=== PATIENT | female | born 1945 | race Caucasian/White ===

== ENCOUNTER 2017-06-24 06:41 | Emergency (ER) | payer MEDICARE, OTHER ==
[2017-06-24 08:14] LABS: ADD MAN DIFF? NO
[2017-06-24 08:16] LABS: WHITE BLOOD COUNT 6.8 10^3/ul (4.8-10.8)
[2017-06-24 08:16] LABS: BASOPHIL # 0.1 10^3/ul (0.0-0.1); BASOPHILS % 1.2 % (0.0-2.0); EOSINOPHILS # 0.3 10^3/ul (0.0-0.5); HEMATOCRIT 40.9 % (37.0-47.0); HEMOGLOBIN 13.3 g/dl (12.0-16.0); LYMPHOCYTES # 1.5 10^3/ul (0.8-2.9); MEAN CORPUSCULAR HEMOGLOBIN 33.7 pg (29.0-33.0); MEAN CORPUSCULAR HGB CONC 32.5 g/dl (32.0-37.0); MEAN CORPUSCULAR VOLUME 103.5 fl (82.0-101.0); MEAN PLATELET VOLUME 11.4 fl (7.4-10.4); MONOCYTE # 0.6 10^3/ul (0.3-0.9); MONOCYTES % 9.3 % (0.0-11.0); NEUTROPHIL # 4.3 10^3/ul (1.6-7.5); NEUTROPHILS % 63.4 % (39.0-77.0); PLATELET COUNT 242 10^3/UL (140-415); RED BLOOD COUNT 3.95 10^6/ul (4.20-5.40); RED CELL DISTRIBUTION WIDTH 12.5 % (11.5-14.5)
[2017-06-24 08:21] LABS: ANION GAP 16 (8-16); BLOOD UREA NITROGEN 13 mg/dl (7-20); CALCIUM 9.2 mg/dl (8.4-10.2); CARBON DIOXIDE 25 mmol/L (21-31); CHLORIDE 107 mmol/L (97-110); CREATININE 0.85 mg/dl (0.44-1.00); GLUCOSE 115 mg/dl (70-220); POTASSIUM 3.8 mmol/L (3.5-5.1); SODIUM 144 mmol/L (135-144)
[2017-06-24] MEDS: SOD CHLORIDE 0.9% 100 ML (10:05)
[2017-06-24] MEDS: IOHEXOL 100 ML (10:05)
== END 2017-06-24 10:39 | disposition home or self-care (01) ==
LOC: E/R 06:41
DX: K59.00 Constipation, unspecified (principal); I71.4 Abdominal aortic aneurysm, without rupture; I10 Essential (primary) hypertension; Z87.891 Personal history of nicotine dependence
CPT/HCPCS: 36415; 75635; 80048; 85025; 99285-25

== ENCOUNTER 2017-10-19 03:03 | Inpatient (IN) | payer MEDICARE, OTHER ==
[2017-10-19 03:33] LABS: ADD MAN DIFF? NO
[2017-10-19 03:35] LABS: WHITE BLOOD COUNT 4.9 10^3/ul (4.8-10.8)
[2017-10-19 03:35] LABS: BASOPHIL # 0.1 10^3/ul (0.0-0.1); BASOPHILS % 1.4 % (0.0-2.0); EOSINOPHILS # 0.3 10^3/ul (0.0-0.5); EOSINOPHILS % 6.6 % (0.0-7.0); HEMATOCRIT 43.9 % (37.0-47.0); HEMOGLOBIN 14.7 g/dl (12.0-16.0); LYMPHOCYTES # 1.8 10^3/ul (0.8-2.9); LYMPHOCYTES % 37.4 % (15.0-51.0); MEAN CORPUSCULAR HEMOGLOBIN 33.9 pg (29.0-33.0); MEAN CORPUSCULAR HGB CONC 33.5 g/dl (32.0-37.0); MEAN CORPUSCULAR VOLUME 101.2 fl (82.0-101.0); MEAN PLATELET VOLUME 11.4 fl (7.4-10.4); MONOCYTE # 0.5 10^3/ul (0.3-0.9); MONOCYTES % 9.9 % (0.0-11.0); NEUTROPHIL # 2.2 10^3/ul (1.6-7.5); NEUTROPHILS % 44.5 % (39.0-77.0); PLATELET COUNT 247 10^3/UL (140-415); RED BLOOD COUNT 4.34 10^6/ul (4.20-5.40); RED CELL DISTRIBUTION WIDTH 11.9 % (11.5-14.5)
[2017-10-19] MEDS: ALBUTEROL 0.083% (NEB) 2.5 MG/3 ML AMP INH (03:39)
[2017-10-19 03:54] LABS: ALANINE AMINOTRANSFERASE 37 IU/L (13-69); ALBUMIN 4.6 g/dl (3.3-4.9); ALBUMIN/GLOBULIN RATIO 1.35; ALKALINE PHOSPHATASE 76 IU/L (42-121); ANION GAP 21 (8-16); ASPARTATE AMINO TRANSFERASE 44 IU/L (15-46); BILIRUBIN,INDIRECT 0.2 mg/dl (0-1.1); BILIRUBIN,TOTAL 0.2 mg/dl (0.2-1.3); BLOOD UREA NITROGEN 10 mg/dl (7-20); CALCIUM 9.8 mg/dl (8.4-10.2); CARBON DIOXIDE 22 mmol/L (21-31); CHLORIDE 107 mmol/L (97-110); CREATININE 0.87 mg/dl (0.44-1.00); GLUCOSE 117 mg/dl (70-220); INR 0.84; POTASSIUM 3.8 mmol/L (3.5-5.1); PROTIME 11.6 Sec (11.9-14.9); PT RATIO 0.9; SODIUM 146 mmol/L (135-144)
[2017-10-19 03:55] LABS: PARTIAL THROMBOPLASTIN TIME 30.8 Sec (25.0-35.0)
[2017-10-19 04:04] LABS: LACTIC ACID 2.3 mmol/L (0.5-2.0)
[2017-10-19 04:05] LABS: B-TYPE NATRIURETIC PEPTIDE 25 PG/ML (0-125); TROPONIN-I < 0.012 ng/ml (0.000-0.120)
[2017-10-19] MEDS: SODIUM CHLORIDE 0.9% 1L BAG IV* (04:14)
[2017-10-19] MEDS: CEFEPIME 2GM/50 ML (PMX) 50 ML IVPB (04:15)
[2017-10-19] MEDS: ONDANSETRON 4 MG INJ IV (04:18)
[2017-10-19] MEDS: traMADol 50 MG TAB PO ×4 (04:31→17:57)
[2017-10-19] MEDS: VANCOMYCIN 1 GM (PMX) 250 ML IVPB (04:53)
[2017-10-19] MEDS ORDERED: DOCUSATE SODIUM 100 MG CAP PO (07:00)
[2017-10-19] MEDS ORDERED: BISACODYL (EC) 5 MG TAB PO (07:00)
[2017-10-19] MEDS ORDERED: ONDANSETRON 4 MG INJ IV (07:00)
[2017-10-19] MEDS ORDERED: ACETAMINOPHEN 325 MG TAB PO (07:00)
[2017-10-19] MEDS ORDERED: NACL 0.9% 3 ML SYG IV (07:00)
[2017-10-19] MEDS: HYDROCODONE/APAP (5/325) TAB PO (07:20)
[2017-10-19] MEDS ORDERED: VANCOMYCIN IV PER PHARMACY XX (07:30)
[2017-10-19] MEDS: PIPER-TAZO 3.375 GM IV (PMX) 100 ML IVPB ×2 (11:33→17:57)
[2017-10-19 12:42] LABS: ADD UMIC NO; UR ASCORBIC ACID NEGATIVE (NEGATIVE); UR BILIRUBIN (Dip) NEGATIVE (NEGATIVE); UR BLOOD (Dip) NEGATIVE (NEGATIVE); UR CLARITY CLEAR (CLEAR); UR COLOR YELLOW (YELLOW); UR GLUCOSE (Dip) NEGATIVE (NEGATIVE); UR KETONES (Dip) NEGATIVE (NEGATIVE); UR LEUKOCYTE ESTERASE (Dip) NEGATIVE Leu/ul (NEGATIVE); UR NITRITE (Dip) NEGATIVE (NEGATIVE); UR SPECIFIC GRAVITY (Dip) 1.016 (1.003-1.030); UR TOTAL PROTEIN (Dip) NEGATIVE (NEGATIVE); UR UROBILINOGEN (Dip) NEGATIVE (NEGATIVE)
[2017-10-19 15:15] LABS: FOLATE > 20.0 ng/ml (2.8-20.0)
[2017-10-19] MEDS ORDERED: traMADol 50 MG TAB PO (15:30)
[2017-10-19] MEDS: VANCOMYCIN 500MG/NS (PMX) 100 ML IVPB (16:28)
[2017-10-19] MEDS: clonAZEPAM 0.5 MG TAB PO (16:30)
[2017-10-19 17:23] LABS: AMPHETAMINE/METHAMPHETAMINE Negative (NEGATIVE); BARBITURATES Negative (NEGATIVE); BENZODIAZEPINES Negative (NEGATIVE); CANNABINOIDS Negative (NEGATIVE); COCAINE Negative (NEGATIVE); OPIATES Positive (NEGATIVE)
[2017-10-19] MEDS: ALBUTEROL/IPRATROPIUM (NEB) 3 ML AMP HHN (21:03)
[2017-10-20] MEDS: PIPER-TAZO 3.375 GM IV (PMX) 100 ML IVPB ×3 (00:18→11:59)
[2017-10-20] MEDS: traMADol 50 MG TAB PO ×4 (00:19→15:13)
[2017-10-20] MEDS: clonAZEPAM 0.5 MG TAB PO ×2 (00:25→09:54)
[2017-10-20] MEDS: VANCOMYCIN 500MG/NS (PMX) 100 ML IVPB (05:48)
[2017-10-20] MEDS: PANTOPRAZOLE (EC) 40 MG TAB PO (05:51)
[2017-10-20 05:58] LABS: ADD MAN DIFF? NO
[2017-10-20 06:16] LABS: WHITE BLOOD COUNT 6.2 10^3/ul (4.8-10.8)
[2017-10-20 06:16] LABS: BASOPHIL # 0.1 10^3/ul (0.0-0.1); BASOPHILS % 1.1 % (0.0-2.0); EOSINOPHILS # 0.5 10^3/ul (0.0-0.5); EOSINOPHILS % 8.4 % (0.0-7.0); HEMATOCRIT 36.7 % (37.0-47.0); HEMOGLOBIN 11.9 g/dl (12.0-16.0); LYMPHOCYTES # 2.1 10^3/ul (0.8-2.9); LYMPHOCYTES % 33.5 % (15.0-51.0); MEAN CORPUSCULAR HEMOGLOBIN 33.7 pg (29.0-33.0); MEAN CORPUSCULAR HGB CONC 32.4 g/dl (32.0-37.0); MEAN PLATELET VOLUME 11.5 fl (7.4-10.4); MONOCYTE # 0.6 10^3/ul (0.3-0.9); NEUTROPHIL # 2.9 10^3/ul (1.6-7.5); NEUTROPHILS % 46.8 % (39.0-77.0); PLATELET COUNT 181 10^3/UL (140-415); RED BLOOD COUNT 3.53 10^6/ul (4.20-5.40); RED CELL DISTRIBUTION WIDTH 12.2 % (11.5-14.5)
[2017-10-20 06:21] LABS: HEMOGLOBIN A1C 5.9 % (0-5.9)
[2017-10-20 07:00] LABS: ALANINE AMINOTRANSFERASE 41 IU/L (13-69); ALBUMIN 3.5 g/dl (3.3-4.9); ALBUMIN/GLOBULIN RATIO 1.25; ALKALINE PHOSPHATASE 47 IU/L (42-121); ANION GAP 12 (8-16); ASPARTATE AMINO TRANSFERASE 40 IU/L (15-46); BILIRUBIN,INDIRECT 0.3 mg/dl (0-1.1); BILIRUBIN,TOTAL 0.3 mg/dl (0.2-1.3); BLOOD UREA NITROGEN 22 mg/dl (7-20); CALCIUM 8.9 mg/dl (8.4-10.2); CARBON DIOXIDE 27 mmol/L (21-31); CHLORIDE 106 mmol/L (97-110); CHOL/HDL RATIO 2.1 RATIO; CHOLESTEROL 136 mg/dl (100-200); CREATININE 0.98 mg/dl (0.44-1.00); GLUCOSE 93 mg/dl (70-220); HDL CHOLESTEROL 64 mg/dl (33-92); LDL CHOLESTEROL,CALCULATED 61 mg/dl; MAGNESIUM 1.9 mg/dl (1.7-2.5); POTASSIUM 4.4 mmol/L (3.5-5.1); SODIUM 141 mmol/L (135-144); TOTAL PROTEIN 6.3 g/dl (6.1-8.1); TRIGLYCERIDES 55 mg/dl (0-149)
[2017-10-20] MEDS: DOCUSATE SODIUM 100 MG CAP PO (09:54)
[2017-10-20] MEDS: VENLAFAXINE (XR) 75 MG CAP PO (09:54)
[2017-10-20] MEDS: POLYETHYLENE GLYCOL 17 GM PACKET PO (09:55)
[2017-10-20] MEDS: AMLODIPINE 10 MG TAB PO (09:55)
[2017-10-20] MEDS: ATORVASTATIN 20 MG TAB PO (09:55)
[2017-10-20] MEDS ORDERED: CEPASTAT LOZENGE MT (12:00)
[2017-10-20] MEDS: CEPASTAT LOZENGE MT (13:28)
[2017-10-20] MEDS: ALBUTEROL/IPRATROPIUM (NEB) 3 ML AMP HHN (16:14)
[2017-10-20 17:17] LABS: VANCOMYCIN,TROUGH 7.6 ug/ml (10.0-20.0)
[2017-10-20] MEDS ORDERED: MONTELUKAST 10 MG TAB PO (21:00)
== END 2017-10-20 16:50 | disposition left against medical advice (07) | DRG 872 ==
LOC: E/R 03:03 → 2NE 07:04
DX: A41.9 Sepsis, unspecified organism (principal); R65.20 Severe sepsis without septic shock; J44.9 Chronic obstructive pulmonary disease, unspecified; J06.9 Acute upper respiratory infection, unspecified; E86.0 Dehydration; I10 Essential (primary) hypertension; E78.5 Hyperlipidemia, unspecified; F41.8 Other specified anxiety disorders; G89.29 Other chronic pain; Z76.5 Malingerer [conscious simulation]; K59.00 Constipation, unspecified; K27.9 Peptic ulcer, site unspecified, unspecified as acute or chronic, without hemorrhage or perforation
CPT/HCPCS: 36415; 71045; 76775; 80053; 80061; 80202; 80307; 81003; 82607; 82746; 83036; 83605; 83735; 83880; 84443; 84484; 85025; 85610; 85730; 87040; 87086; 87880; 93005; 94640; 94664; 96374; 96375; 99291-25

== ENCOUNTER 2018-05-04 12:11 | Emergency (ER) | payer MEDICARE, OTHER ==
[2018-05-04] MEDS: morphine 2 MG INJ IM (14:21)
== END 2018-05-04 15:08 | disposition home or self-care (01) ==
LOC: E/R 12:11
DX: S42.302A Unspecified fracture of shaft of humerus, left arm, initial encounter for closed fracture (principal); J44.9 Chronic obstructive pulmonary disease, unspecified; I10 Essential (primary) hypertension; W01.0XXA Fall on same level from slipping, tripping and stumbling without subsequent striking against object, initial encounter; Y92.9 Unspecified place or not applicable; Z79.82 Long term (current) use of aspirin
CPT/HCPCS: 73030; 96372; 99284-25

== ENCOUNTER 2018-05-06 02:44 | Emergency (ER) | payer MEDICARE, OTHER ==
[2018-05-06] MEDS: morphine 4 MG/ML VIAL IV (03:24)
[2018-05-06] MEDS: ONDANSETRON 4 MG INJ IV (03:24)
[2018-05-06] MEDS: HYDROCODONE/APAP (10/325) TAB PO (05:39)
== END 2018-05-06 07:38 | disposition home or self-care (01) ==
LOC: E/R 02:44
DX: S42.292D Other displaced fracture of upper end of left humerus, subsequent encounter for fracture with routine healing (principal); I10 Essential (primary) hypertension; J44.9 Chronic obstructive pulmonary disease, unspecified; W18.39XD Other fall on same level, subsequent encounter; Y92.9 Unspecified place or not applicable; Z79.82 Long term (current) use of aspirin; Z87.891 Personal history of nicotine dependence
CPT/HCPCS: 73130; 73130-LT; 73562; 73590; 96374; 96375; 99284-25

== ENCOUNTER 2018-05-12 04:03 | Inpatient (IN) | payer MEDICARE, OTHER ==
[2018-05-12] MEDS ORDERED: ACETAMINOPHEN 325 MG TAB PO ×2 (06:00→07:00)
[2018-05-12] MEDS ORDERED: ONDANSETRON 4 MG INJ IV (06:00)
[2018-05-12 06:08] LABS: ADD MAN DIFF? NO
[2018-05-12 06:15] LABS: WHITE BLOOD COUNT 6.6 10^3/ul (4.8-10.8)
[2018-05-12 06:15] LABS: BASOPHIL # 0.1 10^3/ul (0.0-0.1); BASOPHILS % 1.1 % (0.0-2.0); EOSINOPHILS # 0.2 10^3/ul (0.0-0.5); HEMATOCRIT 38.6 % (37.0-47.0); HEMOGLOBIN 12.3 g/dl (12.0-16.0); LYMPHOCYTES # 1.1 10^3/ul (0.8-2.9); LYMPHOCYTES % 17.2 % (15.0-51.0); MEAN CORPUSCULAR HEMOGLOBIN 33.1 pg (29.0-33.0); MEAN CORPUSCULAR HGB CONC 31.9 g/dl (32.0-37.0); MEAN CORPUSCULAR VOLUME 103.8 fl (82.0-101.0); MEAN PLATELET VOLUME 10.9 fl (7.4-10.4); MONOCYTE # 0.5 10^3/ul (0.3-0.9); MONOCYTES % 7.7 % (0.0-11.0); NEUTROPHIL # 4.7 10^3/ul (1.6-7.5); NEUTROPHILS % 70.7 % (39.0-77.0); PLATELET COUNT 351 10^3/UL (140-415); RED BLOOD COUNT 3.72 10^6/ul (4.20-5.40); RED CELL DISTRIBUTION WIDTH 11.9 % (11.5-14.5)
[2018-05-12 06:32] LABS: INR 0.84; PROTIME 11.6 Sec (11.9-14.9); PT RATIO 0.9
[2018-05-12 06:42] LABS: ANION GAP 16 (5-13); BLOOD UREA NITROGEN 12 mg/dl (7-20); CALCIUM 10.3 mg/dl (8.4-10.2); CARBON DIOXIDE 24 mmol/L (21-31); CHLORIDE 104 mmol/L (97-110); GLUCOSE 118 mg/dl (70-220); SODIUM 144 mmol/L (135-144)
[2018-05-12] MEDS ORDERED: NACL 0.9% 3 ML SYG IV (07:00)
[2018-05-12] MEDS: ONDANSETRON 4 MG INJ IV ×2 (07:10→14:31)
[2018-05-12] MEDS: morphine 2 MG INJ IV ×4 (07:10→23:01)
[2018-05-12] MEDS: VENLAFAXINE (XR) 75 MG CAP PO (08:18)
[2018-05-12] MEDS: ATORVASTATIN 20 MG TAB PO (08:39)
[2018-05-12] MEDS: KETOROLAC 30 MG INJ IV ×2 (08:41→15:14)
[2018-05-12] MEDS: clonAZEPAM 0.5 MG TAB PO ×2 (10:21→22:00)
[2018-05-12] MEDS ORDERED: traMADol 50 MG TAB PO (12:00)
[2018-05-12] MEDS: traMADol 50 MG TAB PO ×2 (12:08→18:08)
[2018-05-12] MEDS: ALBUTEROL/IPRATROPIUM (NEB) 3 ML AMP HHN ×2 (17:03→23:40)
[2018-05-12] MEDS: RANITIDINE 150 MG TAB PO (22:03)
[2018-05-13] MEDS: traMADol 50 MG TAB PO ×4 (00:10→18:37)
[2018-05-13] MEDS: morphine 2 MG INJ IV ×4 (02:07→16:49)
[2018-05-13 05:30] LABS: ADD MAN DIFF? NO
[2018-05-13 05:35] LABS: WHITE BLOOD COUNT 5.9 10^3/ul (4.8-10.8)
[2018-05-13 05:35] LABS: BASOPHIL # 0.1 10^3/ul (0.0-0.1); EOSINOPHILS # 0.3 10^3/ul (0.0-0.5); EOSINOPHILS % 5.2 % (0.0-7.0); HEMATOCRIT 33.2 % (37.0-47.0); HEMOGLOBIN 10.7 g/dl (12.0-16.0); LYMPHOCYTES # 1.7 10^3/ul (0.8-2.9); LYMPHOCYTES % 28.4 % (15.0-51.0); MEAN CORPUSCULAR HEMOGLOBIN 33.1 pg (29.0-33.0); MEAN CORPUSCULAR HGB CONC 32.2 g/dl (32.0-37.0); MEAN CORPUSCULAR VOLUME 102.8 fl (82.0-101.0); MEAN PLATELET VOLUME 10.8 fl (7.4-10.4); MONOCYTE # 0.7 10^3/ul (0.3-0.9); NEUTROPHIL # 3.2 10^3/ul (1.6-7.5); NEUTROPHILS % 54.2 % (39.0-77.0); PLATELET COUNT 303 10^3/UL (140-415); RED BLOOD COUNT 3.23 10^6/ul (4.20-5.40); RED CELL DISTRIBUTION WIDTH 11.9 % (11.5-14.5)
[2018-05-13 06:12] LABS: ALANINE AMINOTRANSFERASE 23 IU/L (13-69); ALBUMIN/GLOBULIN RATIO 1.29; ALKALINE PHOSPHATASE 81 IU/L (42-121); ANION GAP 14 (5-13); ASPARTATE AMINO TRANSFERASE 40 IU/L (15-46); BILIRUBIN,INDIRECT 0.2 mg/dl (0-1.1); BILIRUBIN,TOTAL 0.2 mg/dl (0.2-1.3); BLOOD UREA NITROGEN 24 mg/dl (7-20); CALCIUM 9.5 mg/dl (8.4-10.2); CARBON DIOXIDE 27 mmol/L (21-31); CHLORIDE 102 mmol/L (97-110); CREATININE 0.84 mg/dl (0.44-1.00); GLUCOSE 102 mg/dl (70-220); PHOSPHORUS 4.4 mg/dl (2.5-4.9); POTASSIUM 4.2 mmol/L (3.5-5.1); SODIUM 143 mmol/L (135-144); TOTAL PROTEIN 7.1 g/dl (6.1-8.1)
[2018-05-13] MEDS: HEPARIN 5,000 UNIT/1 ML VIAL SC (09:00)
[2018-05-13] MEDS: VENLAFAXINE (XR) 75 MG CAP PO (09:36)
[2018-05-13] MEDS: ATORVASTATIN 20 MG TAB PO (09:36)
[2018-05-13 11:40] LABS: OCCULT BLOOD STOOL NEGATIVE (NEGATIVE)
[2018-05-13] MEDS: clonAZEPAM 0.5 MG TAB PO (12:06)
[2018-05-13] MEDS: ONDANSETRON 4 MG INJ IV (16:49)
== END 2018-05-13 21:00 | disposition home or self-care (01) | DRG 92 ==
LOC: E/R 04:03 → MS1 06:00
DX: G89.29 Other chronic pain (principal); S42.292A Other displaced fracture of upper end of left humerus, initial encounter for closed fracture; I10 Essential (primary) hypertension; E78.5 Hyperlipidemia, unspecified; J44.9 Chronic obstructive pulmonary disease, unspecified; M21.832 Other specified acquired deformities of left forearm; G40.909 Epilepsy, unspecified, not intractable, without status epilepticus; F41.9 Anxiety disorder, unspecified; F32.9 Major depressive disorder, single episode, unspecified; R29.6 Repeated falls; Z87.11 Personal history of peptic ulcer disease; Z87.891 Personal history of nicotine dependence; W19.XXXD Unspecified fall, subsequent encounter
CPT/HCPCS: 71045; 73030; 80048; 80053; 82270; 83735; 84100; 85025; 85610; 86850; 86900; 86901; 87081; 93005; 94640; 94664; 99285-25

== ENCOUNTER 2018-07-01 12:40 | Emergency (ER) | payer MEDICARE, OTHER ==
[2018-07-01] MEDS: LIDOCAINE/MYLANTA 40 ML BTL PO (13:23)
[2018-07-01] MEDS: clonAZEPAM 0.5 MG TAB PO (13:24)
[2018-07-01] MEDS: traMADol 50 MG TAB PO (13:24)
[2018-07-01] MEDS: ONDANSETRON (ODT) 4 MG TAB ODT (15:35)
== END 2018-07-01 17:09 | disposition home or self-care (01) ==
LOC: E/R 12:40
DX: R10.13 Epigastric pain (principal); J44.9 Chronic obstructive pulmonary disease, unspecified
CPT/HCPCS: 99283

== ENCOUNTER 2018-07-01 22:31 | Inpatient (IN) | payer MEDICARE, OTHER ==
[2018-07-01 23:51] LABS: ADD MAN DIFF? NO
[2018-07-01 23:59] LABS: WHITE BLOOD COUNT 10.1 10^3/ul (4.8-10.8)
[2018-07-01 23:59] LABS: BASOPHIL # 0.1 10^3/ul (0.0-0.1); BASOPHILS % 0.7 % (0.0-2.0); EOSINOPHILS # 0.1 10^3/ul (0.0-0.5); HEMATOCRIT 41.4 % (37.0-47.0); HEMOGLOBIN 13.9 g/dl (12.0-16.0); LYMPHOCYTES # 1.7 10^3/ul (0.8-2.9); LYMPHOCYTES % 16.8 % (15.0-51.0); MEAN CORPUSCULAR HEMOGLOBIN 33.6 pg (29.0-33.0); MEAN CORPUSCULAR HGB CONC 33.6 g/dl (32.0-37.0); MONOCYTE # 0.7 10^3/ul (0.3-0.9); MONOCYTES % 7.3 % (0.0-11.0); NEUTROPHIL # 7.5 10^3/ul (1.6-7.5); NEUTROPHILS % 73.7 % (39.0-77.0); PLATELET COUNT 320 10^3/UL (140-415); RED BLOOD COUNT 4.14 10^6/ul (4.20-5.40); RED CELL DISTRIBUTION WIDTH 11.9 % (11.5-14.5)
[2018-07-02 00:08] LABS: URINE BLOOD (Dip) POC Negative (NEGATIVE); URINE GLUCOSE (Dip) POC Negative (NEGATIVE); URINE KETONES (Dip) POC Negative (NEGATIVE); URINE LEUKOCYTE EST (Dip) POC Trace (NEGATIVE); URINE NITRITE (Dip) POC Positive (NEGATIVE); URINE TOTAL PROTEIN POC Trace (NEGATIVE)
[2018-07-02 00:08] LABS: URINE PH (Dip) POC 6.5 (5.0-8.5)
[2018-07-02] MEDS: ONDANSETRON 4 MG INJ IV ×2 (00:44→03:01)
[2018-07-02 01:28] LABS: ALANINE AMINOTRANSFERASE 25 IU/L (13-69); ALBUMIN/GLOBULIN RATIO 1.66; ALKALINE PHOSPHATASE 104 IU/L (42-121); ANION GAP 12 (5-13); ASPARTATE AMINO TRANSFERASE 32 IU/L (15-46); BILIRUBIN,INDIRECT 0.4 mg/dl (0-1.1); BILIRUBIN,TOTAL 0.4 mg/dl (0.2-1.3); BLOOD UREA NITROGEN 13 mg/dl (7-20); CALCIUM 10.4 mg/dl (8.4-10.2); CARBON DIOXIDE 27 mmol/L (21-31); CHLORIDE 97 mmol/L (97-110); CREATININE 0.92 mg/dl (0.44-1.00); GLUCOSE 122 mg/dl (70-220); LIPASE 98 U/L (23-300); POTASSIUM 3.3 mmol/L (3.5-5.1); SODIUM 136 mmol/L (135-144)
[2018-07-02] MEDS: SOD CHLORIDE 0.9% 100 ML (02:51)
[2018-07-02] MEDS: IOHEXOL 100 ML (02:52)
[2018-07-02] MEDS: morphine 2 MG INJ IV (03:01)
[2018-07-02] MEDS: CEFTRIAXONE 1 GM/50 ML (PMX) 50 ML IVPB (03:14)
[2018-07-02] MEDS: traMADol 50 MG TAB PO ×3 (06:58→13:59)
[2018-07-02] MEDS: clonAZEPAM 0.5 MG TAB PO ×2 (06:58→20:05)
[2018-07-02] MEDS ORDERED: NACL 0.9% 3 ML SYG IV (07:00)
[2018-07-02] MEDS ORDERED: ALBUTEROL 18 GM INHALER INH (07:00)
[2018-07-02] MEDS ORDERED: DOCUSATE SODIUM 100 MG CAP PO (07:00)
[2018-07-02] MEDS ORDERED: BISACODYL (EC) 5 MG TAB PO (07:00)
[2018-07-02] MEDS ORDERED: ACETAMINOPHEN 325 MG TAB PO (07:00)
[2018-07-02] MEDS ORDERED: NON-FORMULARY/PATIENT OWN MED (Omeprazole* 40 MG) PO (09:00)
[2018-07-02] MEDS: LOSARTAN 25 MG TAB PO (09:05)
[2018-07-02] MEDS: POLYETHYLENE GLYCOL 17 GM PACKET PO (09:55)
[2018-07-02] MEDS: PANTOPRAZOLE (EC) 40 MG TAB PO (09:55)
[2018-07-02] MEDS ORDERED: ALBUTEROL HFA 8 GM INHALER INH (09:56)
[2018-07-02] MEDS: ATORVASTATIN 20 MG TAB PO (09:56)
[2018-07-02] MEDS: DOCUSATE SODIUM 100 MG CAP PO (09:56)
[2018-07-02] MEDS: hydrALAzine 20 MG INJ IV (10:20)
[2018-07-02] MEDS: ARFORMOTEROL TARTRATE 15MCG/2 ML AMP NEB ×2 (11:30→13:50)
[2018-07-02] MEDS: METHYLPREDNISOLONE 125 MG INJ IV (12:04)
[2018-07-02] MEDS: VENLAFAXINE (XR) 75 MG CAP PO ×2 (12:04→13:57)
[2018-07-02] MEDS: ALBUTEROL/IPRATROPIUM (NEB) 3 ML AMP HHN (13:51)
[2018-07-02] MEDS: METHYLPREDNISOLONE 40 MG INJ IV (20:05)
[2018-07-02] MEDS: RANITIDINE 150 MG TAB PO (20:05)
[2018-07-02] MEDS: POTASSIUM CHLORIDE (SR) 20 MEQ TAB PO (20:06)
[2018-07-02 22:42] LABS: AMPHETAMINE/METHAMPHETAMINE Negative (NEGATIVE); BARBITURATES Negative (NEGATIVE); CANNABINOIDS Negative (NEGATIVE); OPIATES Positive (NEGATIVE)
[2018-07-02 22:43] LABS: BENZODIAZEPINES Positive (NEGATIVE)
[2018-07-02 22:45] LABS: COCAINE Negative (NEGATIVE)
[2018-07-03] MEDS ORDERED: ENALAPRILAT 1.25 MG INJ IV (02:30)
[2018-07-03] MEDS: CEFTRIAXONE 1 GM/50 ML (PMX) 50 ML IVPB (03:42)
[2018-07-03] MEDS: PANTOPRAZOLE (EC) 40 MG TAB PO (05:31)
[2018-07-03] MEDS: traMADol 50 MG TAB PO ×3 (05:32→18:44)
[2018-07-03] MEDS: ONDANSETRON 4 MG INJ IV ×2 (05:32→14:54)
[2018-07-03 06:24] LABS: ADD MAN DIFF? NO
[2018-07-03 06:27] LABS: WHITE BLOOD COUNT 10.8 10^3/ul (4.8-10.8)
[2018-07-03 06:27] LABS: BASOPHILS % 0.2 % (0.0-2.0); HEMATOCRIT 37.3 % (37.0-47.0); HEMOGLOBIN 12.4 g/dl (12.0-16.0); LYMPHOCYTES # 1.2 10^3/ul (0.8-2.9); LYMPHOCYTES % 10.7 % (15.0-51.0); MEAN CORPUSCULAR HEMOGLOBIN 33.8 pg (29.0-33.0); MEAN CORPUSCULAR HGB CONC 33.2 g/dl (32.0-37.0); MEAN CORPUSCULAR VOLUME 101.6 fl (82.0-101.0); MEAN PLATELET VOLUME 11.2 fl (7.4-10.4); MONOCYTE # 0.6 10^3/ul (0.3-0.9); MONOCYTES % 5.7 % (0.0-11.0); NEUTROPHILS % 83.1 % (39.0-77.0); PLATELET COUNT 271 10^3/UL (140-415); RED BLOOD COUNT 3.67 10^6/ul (4.20-5.40); RED CELL DISTRIBUTION WIDTH 12.5 % (11.5-14.5)
[2018-07-03 06:56] LABS: MAGNESIUM 2.2 mg/dl (1.7-2.5)
[2018-07-03 06:56] LABS: PHOSPHORUS 5.1 mg/dl (2.5-4.9)
[2018-07-03 06:58] LABS: ALANINE AMINOTRANSFERASE 21 IU/L (13-69); ALBUMIN 4.4 g/dl (3.3-4.9); ALBUMIN/GLOBULIN RATIO 1.69; ALKALINE PHOSPHATASE 77 IU/L (42-121); ANION GAP 9 (5-13); ASPARTATE AMINO TRANSFERASE 51 IU/L (15-46); BILIRUBIN,INDIRECT 0.4 mg/dl (0-1.1); BILIRUBIN,TOTAL 0.4 mg/dl (0.2-1.3); BLOOD UREA NITROGEN 25 mg/dl (7-20); CALCIUM 9.6 mg/dl (8.4-10.2); CARBON DIOXIDE 27 mmol/L (21-31); CHLORIDE 103 mmol/L (97-110); CHOL/HDL RATIO 2.1 RATIO; CHOLESTEROL 181 mg/dl (100-200); CREATININE 0.84 mg/dl (0.44-1.00); GLUCOSE 119 mg/dl (70-220); HDL CHOLESTEROL 86 mg/dl (33-92); LDL CHOLESTEROL,CALCULATED 81 mg/dl; POTASSIUM 4.2 mmol/L (3.5-5.1); SODIUM 139 mmol/L (135-144); TRIGLYCERIDES 69 mg/dl (0-149)
[2018-07-03 07:17] LABS: THYROID STIMULATING HORMONE 0.286 MIU/L (0.465-4.680)
[2018-07-03 07:40] LABS: HEMOGLOBIN A1C 5.4 % (0-5.9)
[2018-07-03] MEDS: clonAZEPAM 0.5 MG TAB PO ×2 (07:54→20:37)
[2018-07-03] MEDS: VENLAFAXINE (XR) 75 MG CAP PO (08:44)
[2018-07-03] MEDS: POLYETHYLENE GLYCOL 17 GM PACKET PO (08:44)
[2018-07-03] MEDS: LOSARTAN 25 MG TAB PO (08:45)
[2018-07-03] MEDS: ATORVASTATIN 20 MG TAB PO (08:45)
[2018-07-03] MEDS: METHYLPREDNISOLONE 40 MG INJ IV ×2 (08:45→20:36)
[2018-07-03] MEDS: DOCUSATE SODIUM 100 MG CAP PO (08:45)
[2018-07-03] MEDS: ENOXAPARIN 40 MG/0.4 ML SYG SC (09:00)
[2018-07-03] MEDS: ARFORMOTEROL TARTRATE 15MCG/2 ML AMP NEB ×3 (11:57→23:30)
[2018-07-03] MEDS: RANITIDINE 150 MG TAB PO (20:37)
[2018-07-04] MEDS: ONDANSETRON 4 MG INJ IV ×3 (02:52→23:21)
[2018-07-04] MEDS: CEFTRIAXONE 1 GM/50 ML (PMX) 50 ML IVPB (02:52)
[2018-07-04] MEDS: PANTOPRAZOLE (EC) 40 MG TAB PO (05:35)
[2018-07-04] MEDS: traMADol 50 MG TAB PO ×3 (05:45→18:16)
[2018-07-04] MEDS: ALBUTEROL/IPRATROPIUM (NEB) 3 ML AMP HHN (06:16)
[2018-07-04 06:22] LABS: ADD MAN DIFF? NO
[2018-07-04 06:25] LABS: WHITE BLOOD COUNT 11.7 10^3/ul (4.8-10.8)
[2018-07-04 06:25] LABS: BASOPHILS % 0.2 % (0.0-2.0); HEMATOCRIT 39.6 % (37.0-47.0); HEMOGLOBIN 12.9 g/dl (12.0-16.0); LYMPHOCYTES # 1.3 10^3/ul (0.8-2.9); LYMPHOCYTES % 11.2 % (15.0-51.0); MEAN CORPUSCULAR HEMOGLOBIN 33.5 pg (29.0-33.0); MEAN CORPUSCULAR HGB CONC 32.6 g/dl (32.0-37.0); MEAN CORPUSCULAR VOLUME 102.9 fl (82.0-101.0); MEAN PLATELET VOLUME 11.3 fl (7.4-10.4); MONOCYTE # 0.6 10^3/ul (0.3-0.9); MONOCYTES % 4.9 % (0.0-11.0); NEUTROPHIL # 9.8 10^3/ul (1.6-7.5); NEUTROPHILS % 83.4 % (39.0-77.0); PLATELET COUNT 286 10^3/UL (140-415); RED BLOOD COUNT 3.85 10^6/ul (4.20-5.40); RED CELL DISTRIBUTION WIDTH 12.8 % (11.5-14.5)
[2018-07-04 06:58] LABS: MAGNESIUM 2.4 mg/dl (1.7-2.5)
[2018-07-04 07:00] LABS: ANION GAP 11 (5-13); BLOOD UREA NITROGEN 25 mg/dl (7-20); CALCIUM 9.6 mg/dl (8.4-10.2); CARBON DIOXIDE 30 mmol/L (21-31); CHLORIDE 101 mmol/L (97-110); CREATININE 0.84 mg/dl (0.44-1.00); GLUCOSE 128 mg/dl (70-220); POTASSIUM 4.9 mmol/L (3.5-5.1); SODIUM 142 mmol/L (135-144)
[2018-07-04] MEDS: ARFORMOTEROL TARTRATE 15MCG/2 ML AMP NEB ×2 (08:04→20:26)
[2018-07-04] MEDS: METHYLPREDNISOLONE 40 MG INJ IV ×2 (08:36→20:07)
[2018-07-04] MEDS: ATORVASTATIN 20 MG TAB PO (08:37)
[2018-07-04] MEDS: DOCUSATE SODIUM 100 MG CAP PO (08:37)
[2018-07-04] MEDS: clonAZEPAM 0.5 MG TAB PO ×2 (08:38→20:06)
[2018-07-04] MEDS: POLYETHYLENE GLYCOL 17 GM PACKET PO (08:38)
[2018-07-04] MEDS: ENOXAPARIN 40 MG/0.4 ML SYG SC (08:39)
[2018-07-04] MEDS: LOSARTAN 25 MG TAB PO (08:43)
[2018-07-04] MEDS: VENLAFAXINE (XR) 75 MG CAP PO (10:14)
[2018-07-04] MEDS ORDERED: ALBUTEROL/IPRATROPIUM (NEB) 3 ML AMP HHN (16:30)
[2018-07-04] MEDS: RANITIDINE 150 MG TAB PO (20:07)
[2018-07-05] MEDS: traMADol 50 MG TAB PO ×3 (00:56→12:05)
[2018-07-05] MEDS: PANTOPRAZOLE (EC) 40 MG TAB PO (05:27)
[2018-07-05] MEDS: ONDANSETRON 4 MG INJ IV (05:32)
[2018-07-05 08:07] LABS: FREE T4 (FREE THYROXINE) 0.82 ng/dl (0.78-2.44)
[2018-07-05] MEDS: clonAZEPAM 0.5 MG TAB PO (08:10)
[2018-07-05 08:21] LABS: TRIIODOTHYRONINE 0.66 ng/ml (0.97-1.69)
[2018-07-05] MEDS: METHYLPREDNISOLONE 40 MG INJ IV (08:45)
[2018-07-05] MEDS: POLYETHYLENE GLYCOL 17 GM PACKET PO (08:45)
[2018-07-05] MEDS: ENOXAPARIN 40 MG/0.4 ML SYG SC (08:46)
[2018-07-05] MEDS: ATORVASTATIN 20 MG TAB PO (08:46)
[2018-07-05] MEDS: ARFORMOTEROL TARTRATE 15MCG/2 ML AMP NEB (08:46)
[2018-07-05] MEDS: DOCUSATE SODIUM 100 MG CAP PO (08:47)
[2018-07-05] MEDS: LOSARTAN 25 MG TAB PO (08:47)
[2018-07-05] MEDS: VENLAFAXINE (XR) 75 MG CAP PO (08:48)
== END 2018-07-05 17:03 | disposition home or self-care (01) | DRG 897 ==
LOC: E/R 22:31 → 5EC 07-03 17:27 → TEL 07-02 05:04
DX: F13.239 Sedative, hypnotic or anxiolytic dependence with withdrawal, unspecified (principal); N39.0 Urinary tract infection, site not specified; J43.9 Emphysema, unspecified; F41.9 Anxiety disorder, unspecified; F32.9 Major depressive disorder, single episode, unspecified; E78.5 Hyperlipidemia, unspecified; I71.4 Abdominal aortic aneurysm, without rupture; I10 Essential (primary) hypertension; E87.6 Hypokalemia; K27.9 Peptic ulcer, site unspecified, unspecified as acute or chronic, without hemorrhage or perforation; Z99.81 Dependence on supplemental oxygen; G89.29 Other chronic pain; F41.0 Panic disorder [episodic paroxysmal anxiety]; Z87.891 Personal history of nicotine dependence; E05.90 Thyrotoxicosis, unspecified without thyrotoxic crisis or storm; F41.1 Generalized anxiety disorder; K57.30 Diverticulosis of large intestine without perforation or abscess without bleeding; E86.0 Dehydration; Z65.8 Other specified problems related to psychosocial circumstances; Z91.14 Patient's other noncompliance with medication regimen
CPT/HCPCS: 36415; 75635; 80048; 80053; 80061; 80307; 81003; 83036; 83690; 83735; 84100; 84439; 84443; 84480; 85025; 87081; 94640; 94664; 96374; 96375; 96376; 99285-25

== ENCOUNTER 2018-07-19 05:35 | Emergency (ER) | payer MEDICARE, OTHER ==
[2018-07-19] MEDS: clonAZEPAM 0.5 MG TAB PO (06:09)
== END 2018-07-19 08:18 | disposition home or self-care (01) ==
LOC: E/R 05:35
DX: F41.9 Anxiety disorder, unspecified (principal); J44.9 Chronic obstructive pulmonary disease, unspecified; Z79.82 Long term (current) use of aspirin
CPT/HCPCS: 99283

== ENCOUNTER 2018-10-13 06:16 | Emergency (ER) | payer MEDICARE, OTHER ==
[2018-10-13] MEDS: ONDANSETRON (ODT) 4 MG TAB ODT (06:31)
[2018-10-13 06:39] LABS: URINE BLOOD (Dip) POC 2+ (NEGATIVE); URINE GLUCOSE (Dip) POC Negative (NEGATIVE); URINE KETONES (Dip) POC Negative (NEGATIVE); URINE LEUKOCYTE EST (Dip) POC 1+ (NEGATIVE); URINE NITRITE (Dip) POC Negative (NEGATIVE); URINE TOTAL PROTEIN POC Negative (NEGATIVE)
== END 2018-10-13 08:03 | disposition home or self-care (01) ==
LOC: E/R 06:16
DX: F11.20 Opioid dependence, uncomplicated (principal); J44.9 Chronic obstructive pulmonary disease, unspecified; R40.2142 Coma scale, eyes open, spontaneous, at arrival to emergency department; R40.2362 Coma scale, best motor response, obeys commands, at arrival to emergency department; R40.2252 Coma scale, best verbal response, oriented, at arrival to emergency department; Z79.82 Long term (current) use of aspirin; Z87.891 Personal history of nicotine dependence
CPT/HCPCS: 81003; 99283

== ENCOUNTER 2018-10-13 11:46 | Emergency (ER) | payer MEDICARE, OTHER | END 2018-10-13 12:28 | disposition home or self-care (01) | LOC: E/R 11:46 | DX: I10 Essential (primary) hypertension (principal); J44.9 Chronic obstructive pulmonary disease, unspecified | CPT/HCPCS: 99283 ==

== ENCOUNTER 2018-10-29 22:33 | Inpatient (IN) | payer MEDICARE, OTHER ==
[2018-10-29] MEDS: ONDANSETRON 4 MG INJ IV (23:08)
[2018-10-29] MEDS: HYDROmorphONE 1 MG/ML SYG IV (23:08)
[2018-10-29] MEDS: SOD CHLORIDE 0.9% 1,000 ML IV (23:08)
[2018-10-29] MEDS: NA PHOSPHATE/BIPHOS 133 ML ENEMA PR (23:09)
[2018-10-29 23:21] LABS: ABNORMAL IP MESSAGE 1; HEMATOCRIT 41.4 % (37.0-47.0); HEMOGLOBIN 13.4 g/dl (12.0-16.0); MEAN CORPUSCULAR HEMOGLOBIN 34.1 pg (29.0-33.0); MEAN CORPUSCULAR HGB CONC 32.4 g/dl (32.0-37.0); MEAN CORPUSCULAR VOLUME 105.3 fl (82.0-101.0); MEAN PLATELET VOLUME 11.3 fl (7.4-10.4); PLATELET COUNT 343 10^3/UL (140-415); RED BLOOD COUNT 3.93 10^6/ul (4.20-5.40); RED CELL DISTRIBUTION WIDTH 12.3 % (11.5-14.5)
[2018-10-29 23:21] LABS: WHITE BLOOD COUNT 26.1 10^3/ul (4.8-10.8)
[2018-10-29 23:22] LABS: POSITIVE DIFF @See below
[2018-10-29 23:25] LABS: ADD MAN DIFF? YES
[2018-10-29 23:28] LABS: PATH REVIEW? YES
[2018-10-29 23:47] LABS: ALANINE AMINOTRANSFERASE 21 IU/L (13-69); ALBUMIN/GLOBULIN RATIO 1.51; ALKALINE PHOSPHATASE 102 IU/L (42-121); ANION GAP 16 (5-13); ASPARTATE AMINO TRANSFERASE 28 IU/L (15-46); BILIRUBIN,INDIRECT 0.1 mg/dl (0-1.1); BILIRUBIN,TOTAL 0.1 mg/dl (0.2-1.3); BLOOD UREA NITROGEN 22 mg/dl (7-20); CALCIUM 10.6 mg/dl (8.4-10.2); CARBON DIOXIDE 23 mmol/L (21-31); CHLORIDE 102 mmol/L (97-110); CREATININE 0.95 mg/dl (0.44-1.00); GLUCOSE 195 mg/dl (70-220); LIPASE 159 U/L (23-300); POTASSIUM 3.5 mmol/L (3.5-5.1); SODIUM 141 mmol/L (135-144); TOTAL PROTEIN 8.3 g/dl (6.1-8.1)
[2018-10-30 00:11] LABS: ANISOCYTOSIS 1+ (0-0); BAND NEUTROPHILS #M 3.3 10^3/ul (0.0-0.6); BAND NEUTROPHILS % (M) 13 % (0-4); EOSINOPHILS % (M) 1 % (0-7); LYMPHOCYTES #M 2.8 10^3/ul (0.8-2.9); LYMPHOCYTES % (M) 11 % (15-51); MONOCYTE #M 1.5 10^3/ul (0.3-0.9); MONOCYTES % (M) 6 % (0-11); PLATELET ESTIMATE NORMAL; POIKILOCYTOSIS 2+ (0-0); REACTIVE LYMPHOCYTES #M 0.2 10^3/ul (0.0-0.0); REACTIVE LYMPHOCYTES% (M) 1 % (0-0); SEG NEUT #M 18.6 10^3/ul (1.6-7.5); SEGMENTED NEUTROPHILS (M) % 68 % (39-77); SMUDGE%M 9 % (0-0)
[2018-10-30] MEDS: IOHEXOL 300MG/ML 150 ML BTL (00:33)
[2018-10-30] MEDS: SOD CHLORIDE 0.9% 100 ML (00:33)
[2018-10-30] MEDS: ERTAPENEM SODIUM 1 GM in SOD CHLORIDE 0.9% 100 ML IVPB (02:35)
[2018-10-30] MEDS: ONDANSETRON 4 MG INJ IV ×5 (02:35→20:16)
[2018-10-30] MEDS ORDERED: SOD CHLORIDE 0.9% 1,000 ML IV (03:06)
[2018-10-30] MEDS ORDERED: ACETAMINOPHEN 325 MG TAB PO (03:30)
[2018-10-30] MEDS: clonAZEPAM 0.5 MG TAB PO ×3 (04:08→20:16)
[2018-10-30] MEDS: AMLODIPINE 10 MG TAB PO (04:09)
[2018-10-30] MEDS: HYDROmorphONE 1 MG/ML SYG IV (05:26)
[2018-10-30] MEDS: LIDOCAINE/MYLANTA 40 ML BTL PO (05:26)
[2018-10-30] MEDS ORDERED: NACL 0.9% 3 ML SYG IV (07:00)
[2018-10-30] MEDS ORDERED: ALBUTEROL/IPRATROPIUM (NEB) 3 ML AMP HHN (07:00)
[2018-10-30] MEDS ORDERED: NON-FORMULARY/PATIENT OWN MED (Omeprazole* 40 MG) PO (09:00)
[2018-10-30] MEDS: PIPER-TAZO 3.375 GM IV (PMX) 100 ML IVPB ×3 (09:18→17:46)
[2018-10-30] MEDS: VENLAFAXINE (XR) 75 MG CAP PO (09:19)
[2018-10-30] MEDS: DEXTROSE 5%-0.45% NACL 1,000 ML IV ×2 (09:19→20:34)
[2018-10-30] MEDS: PANTOPRAZOLE (EC) 40 MG TAB PO (09:19)
[2018-10-30] MEDS: morphine 2 MG INJ IV ×4 (10:16→22:58)
[2018-10-30 12:28] LABS: ADD UMIC YES; UR ASCORBIC ACID NEGATIVE (NEGATIVE); UR BACTERIA FEW /HPF (NONE SEEN); UR BILIRUBIN (Dip) NEGATIVE (NEGATIVE); UR BLOOD (Dip) NEGATIVE (NEGATIVE); UR CALCIUM OXALATE CRYSTAL MODERATE /HPF (NONE SEEN); UR CLARITY CLEAR (CLEAR); UR COLOR AMBER (YELLOW); UR GLUCOSE (Dip) NEGATIVE (NEGATIVE); UR KETONES (Dip) NEGATIVE (NEGATIVE); UR LEUKOCYTE ESTERASE (Dip) 1+ Leu/ul (NEGATIVE); UR MUCUS FEW /HPF (NONE SEEN); UR NITRITE (Dip) NEGATIVE (NEGATIVE); UR RBC 1 /HPF (0-5); UR SPECIFIC GRAVITY (Dip) 1.049 (1.003-1.030); UR SQUAMOUS EPITHELIAL CELL FEW /HPF (FEW); UR TOTAL PROTEIN (Dip) 2+ mg/dl (NEGATIVE); UR UROBILINOGEN (Dip) NEGATIVE (NEGATIVE); UR WBC 5 /HPF (0-5)
[2018-10-30] MEDS: SOD CHLORIDE 0.9% 1,000 ML IV ×2 (12:36→15:07)
[2018-10-31] MEDS: PIPER-TAZO 3.375 GM IV (PMX) 100 ML IVPB ×3 (00:07→11:25)
[2018-10-31] MEDS: DEXTROSE 5%-0.45% NACL 1,000 ML IV ×2 (02:25→12:49)
[2018-10-31] MEDS: morphine 2 MG INJ IV ×3 (02:26→11:24)
[2018-10-31] MEDS: PANTOPRAZOLE (EC) 40 MG TAB PO (05:38)
[2018-10-31] MEDS: clonAZEPAM 0.5 MG TAB PO ×2 (05:39→13:50)
[2018-10-31] MEDS: ONDANSETRON 4 MG INJ IV (05:39)
[2018-10-31 06:09] LABS: ADD MAN DIFF? NO
[2018-10-31 06:19] LABS: BASOPHILS % 0.5 % (0.0-2.0); EOSINOPHILS # 0.3 10^3/ul (0.0-0.5); EOSINOPHILS % 3.3 % (0.0-7.0); HEMATOCRIT 33.7 % (37.0-47.0); HEMOGLOBIN 10.8 g/dl (12.0-16.0); LYMPHOCYTES # 1.5 10^3/ul (0.8-2.9); LYMPHOCYTES % 17.6 % (15.0-51.0); MEAN CORPUSCULAR HEMOGLOBIN 33.9 pg (29.0-33.0); MEAN CORPUSCULAR VOLUME 105.6 fl (82.0-101.0); MEAN PLATELET VOLUME 11.4 fl (7.4-10.4); MONOCYTE # 0.6 10^3/ul (0.3-0.9); MONOCYTES % 6.6 % (0.0-11.0); NEUTROPHIL # 6.2 10^3/ul (1.6-7.5); NEUTROPHILS % 71.7 % (39.0-77.0); PLATELET COUNT 248 10^3/UL (140-415); RED BLOOD COUNT 3.19 10^6/ul (4.20-5.40); RED CELL DISTRIBUTION WIDTH 12.8 % (11.5-14.5)
[2018-10-31 06:19] LABS: WHITE BLOOD COUNT 8.7 10^3/ul (4.8-10.8)
[2018-10-31 06:40] LABS: ALANINE AMINOTRANSFERASE 23 IU/L (13-69); ALBUMIN 3.6 g/dl (3.3-4.9); ALBUMIN/GLOBULIN RATIO 1.24; ALKALINE PHOSPHATASE 64 IU/L (42-121); ANION GAP 7 (5-13); ASPARTATE AMINO TRANSFERASE 31 IU/L (15-46); BILIRUBIN,INDIRECT 0.3 mg/dl (0-1.1); BILIRUBIN,TOTAL 0.3 mg/dl (0.2-1.3); BLOOD UREA NITROGEN 11 mg/dl (7-20); CALCIUM 8.6 mg/dl (8.4-10.2); CARBON DIOXIDE 27 mmol/L (21-31); CHLORIDE 105 mmol/L (97-110); GLUCOSE 93 mg/dl (70-220); MAGNESIUM 2.1 mg/dl (1.7-2.5); PHOSPHORUS 3.4 mg/dl (2.5-4.9); POTASSIUM 3.7 mmol/L (3.5-5.1); SODIUM 139 mmol/L (135-144); TOTAL PROTEIN 6.5 g/dl (6.1-8.1)
[2018-10-31 06:57] LABS: AMPHETAMINE/METHAMPHETAMINE Negative (NEGATIVE); BARBITURATES Negative (NEGATIVE); BENZODIAZEPINES Negative (NEGATIVE); CANNABINOIDS Negative (NEGATIVE); COCAINE Negative (NEGATIVE); OPIATES Positive (NEGATIVE)
[2018-10-31] MEDS: VENLAFAXINE (XR) 75 MG CAP PO (09:57)
[2018-10-31] MEDS: IBUPROFEN 600 MG TAB PO (10:03)
== END 2018-10-31 15:28 | disposition home or self-care (01) | DRG 392 ==
LOC: E/R 22:33 → PP2 10-30 03:06
DX: K52.9 Noninfective gastroenteritis and colitis, unspecified (principal); F32.9 Major depressive disorder, single episode, unspecified; F41.9 Anxiety disorder, unspecified; G89.29 Other chronic pain; M54.9 Dorsalgia, unspecified; I71.4 Abdominal aortic aneurysm, without rupture; Z87.891 Personal history of nicotine dependence
CPT/HCPCS: 74177; 80053; 80307; 81001; 83690; 83735; 84100; 85025; 87040-91; 96374; 96375; 96376; 99285-25